=== PATIENT | male | born 1965 | race African-American/Black ===

== ENCOUNTER 2021-07-07 11:22 | Inpatient (IN) | payer OTHER ==
[2021-07-07] MEDS ORDERED: ACETAMINOPHEN 1000 MG/100 ML VIAL IVPB ONE (13:52)
[2021-07-07 15:10] LABS: VENOUS BASE EXCESS 2.9 mmol/L (-2-2); VENOUS O2 SATURATION 95.6 % (70-80); VENOUS PCO2 44.9 mmHg (38-52); VENOUS PH 7.413 (7.310-7.410)
[2021-07-07 15:18] LABS: BASO % 0.8 % (0-2.0); EOS % 2.7 % (0-4.5); HEMOGLOBIN 14.4 GM/dL (11.7-16.9); LYMPH % 30.3 % (8-40); MCH 30.9 pg (25.7-33.7); MCHC 34.2 g/dl (32.0-35.9); MEAN CELL VOLUME 90.3 fl (80-96); MEAN PLT VOLUME 8.1 fl (7.5-11.1); MONO % 11.3 % (3.8-10.2); NEUT % 54.9 % (42.8-82.8); PLATELET COUNT 259 10^3/uL (134-434); RBC 4.65 M/mm3 (4.00-5.60); RDW 13.3 % (11.9-15.9); WHITE BLOOD COUNT 10.4 K/mm3 (4.0-10.0)
[2021-07-07 15:22] LABS: CHLORIDE 105 mmol/L (98-107); SODIUM 139 mmol/L (136-145)
[2021-07-07 15:24] LABS: CALCIUM 9.1 mg/dL (8.5-10.1)
[2021-07-07 15:25] LABS: ANION GAP 8 MMOL/L (8-16); BLOOD UREA NITROGEN 24.1 mg/dL (7-18); CO2 27 mmol/L (21-32); GLUCOSE,RANDOM 99 mg/dL (74-106)
[2021-07-07 15:28] LABS: CREATININE 1.2 mg/dL (0.55-1.3); SGOT/AST 62 U/L (15-37); SGPT/ALT 62 U/L (13-61)
[2021-07-07 15:30] LABS: BILIRUBIN,TOTAL 0.4 mg/dL (0.2-1); TOT PROT 6.7 g/dl (6.4-8.2)
[2021-07-07 15:31] LABS: ALK PHOS 66 U/L (45-117)
[2021-07-07 15:38] LABS: PLATELET ESTIMATE NORMAL
[2021-07-07] MEDS ORDERED: VANCOMYCIN 1 GM in D5W (PRE-DOCKED) 1,000 MG/250 ML IVPB ONE (15:57)
[2021-07-07] MEDS ORDERED: PIPERACILLIN/TAZOB 4.5 GM 4.5 GM in DEXTROSE 5%-WATER 100 ML IVPB ONE (15:57)
[2021-07-07] MEDS ORDERED: ACETAMINOPHEN 325 MG TABLET (FP) PO PRN (20:43)
[2021-07-07] MEDS ORDERED: FOLIC ACID INJECTION - 1 MG, THIAMINE HCL 100 MG, MULTIVIT INJECTION ADULT 10 ML in SOD... IVPB ONE (20:57)
[2021-07-07] MEDS ORDERED: diazePAM 5 MG TABLET PO PRN (20:59)
[2021-07-07] MEDS: SODIUM CHLORIDE 1,000 ML IV SCH (21:24)
[2021-07-07] MEDS: NICOTINE 7 MG/24 HOURS TOPICAL PATCH TD SCH (22:17)
[2021-07-07] MEDS: INSULIN SLIDING SCALE (NOVOLOG) 1 VIAL SQ SCH (22:18)
[2021-07-07] MEDS ORDERED: HEPARIN NA (PORCINE) 5,000 UNITS/ML 1ML VIAL ONE (22:19)
[2021-07-07] MEDS: HEPARIN NA (PORCINE) 5,000 UNITS/ML 1ML VIAL SQ SCH (22:23)
[2021-07-07] MEDS ORDERED: PIPERACILLIN/TAZOB 3.375 GM 3.375 GM/50 ML BAG IVPB ONE (22:58)
[2021-07-07] MEDS ORDERED: PIPERACILLIN/TAZOB 3.375 GM 3.375 GM in DEXTROSE 5%-WATER - 50 ML IVPB SCH (23:00)
[2021-07-07] MEDS: PIPERACILLIN/TAZOB 3.375 GM 3.375 GM in DEXTROSE 5%-WATER - 50 ML IVPB SCH (23:06)
[2021-07-08 03:58] VITALS: BMI 26.4
[2021-07-08] MEDS ORDERED: DEXTROSE 5%-WATER - 50 ML IVPB ONE ×2 (05:46→10:21)
[2021-07-08] MEDS ORDERED: PIPERACILLIN/TAZOBACTAM 3.375 GM VIAL IVPB ONE ×2 (05:46→10:20)
[2021-07-08] MEDS: HEPARIN NA (PORCINE) 5,000 UNITS/ML 1ML VIAL SQ SCH ×3 (06:32→21:49)
[2021-07-08] MEDS: PIPERACILLIN/TAZOB 3.375 GM 3.375 GM in DEXTROSE 5%-WATER - 50 ML IVPB SCH ×2 (06:32→11:26)
[2021-07-08] MEDS: INSULIN SLIDING SCALE (NOVOLOG) 1 VIAL SQ SCH ×4 (07:03→23:47)
[2021-07-08] MEDS ORDERED: THIAMINE HCL 100 MG TABLET (FP) PO SCH (10:00)
[2021-07-08] MEDS ORDERED: VANCOMYCIN 1 GRAM (PRE-DOCKED) 1,000 MG/250 ML BAG IVPB ONE (10:00)
[2021-07-08] MEDS ORDERED: VANCOMYCIN 1 GM in D5W (PRE-DOCKED) 1,000 MG/250 ML IVPB SCH (10:00)
[2021-07-08] MEDS: FOLIC ACID 1 MG TABLET (FP) PO SCH (10:24)
[2021-07-08] MEDS: NICOTINE 7 MG/24 HOURS TOPICAL PATCH TD SCH (10:25)
[2021-07-08] MEDS: CYANOCOBALAMIN (VITAMIN B-12) 100 MCG TABLET PO SCH (11:24)
[2021-07-08] MEDS ORDERED: ZINC OXIDE 20% TOPICAL OINTMENT 30 GM TUBE TP ONE (15:00)
[2021-07-08] MEDS ORDERED: levETIRAcetam 500 MG TABLET (FP) PO ONE (17:11)
[2021-07-08] MEDS ORDERED: PIPERACILLIN/TAZOB 3.375 GM 3.375 GM in DEXTROSE 5%-WATER - 50 ML IVPB SCH (18:00)
[2021-07-08] MEDS: QUEtiapine FUMARATE 25 MG TABLET PO SCH (21:49)
[2021-07-08] MEDS: PRAMIPEXOLE DIHYDROCHLORIDE 0.125 MG TABLET PO SCH (21:51)
[2021-07-08] MEDS: SODIUM CHLORIDE 1,000 ML IV SCH (22:06)
[2021-07-08 23:42] LABS: PH,URINE 7.5 (5.0-8.0); URINE APPEARANCE CLEAR; URINE BILIRUBIN NEGATIVE (NEGATIVE); URINE COLOR YELLOW; URINE GLUCOSE (UA) NEGATIVE (NEGATIVE); URINE KETONE NEGATIVE (NEGATIVE); URINE LEUK ESTERASE NEGATIVE (NEGATIVE); URINE NITRITE NEGATIVE (NEGATIVE); URINE PROTEIN NEGATIVE (NEGATIVE)
[2021-07-09] MEDS: INSULIN SLIDING SCALE (NOVOLOG) 1 VIAL SQ SCH (06:58)
[2021-07-09] MEDS: HEPARIN NA (PORCINE) 5,000 UNITS/ML 1ML VIAL SQ SCH ×3 (06:59→21:52)
[2021-07-09 07:08] LABS: HEMATOCRIT 38.5 % (35.4-49); HEMOGLOBIN 13.5 GM/dL (11.7-16.9); MCH 31.8 pg (25.7-33.7); MEAN PLT VOLUME 7.4 fl (7.5-11.1); PLATELET COUNT 290 10^3/uL (134-434); RBC 4.22 M/mm3 (4.00-5.60); RDW 13.3 % (11.9-15.9); WHITE BLOOD COUNT 6.8 K/mm3 (4.0-10.0)
[2021-07-09 07:28] LABS: CALCIUM 7.8 mg/dL (8.5-10.1)
[2021-07-09 07:29] LABS: ALBUMIN 2.5 g/dl (3.4-5.0); BLOOD UREA NITROGEN 12.8 mg/dL (7-18); MAGNESIUM 1.8 mg/dL (1.8-2.4)
[2021-07-09 07:32] LABS: CREATININE 0.8 mg/dL (0.55-1.3); PHOSPHOROUS 2.5 mg/dL (2.5-4.9)
[2021-07-09 07:34] LABS: BILIRUBIN,TOTAL 0.3 mg/dL (0.2-1); TOT PROT 5.8 g/dl (6.4-8.2)
[2021-07-09 07:35] LABS: CHOLESTEROL 137 mg/dL (50-200); TRIGLYCERIDES 77 mg/dL (0-150)
[2021-07-09 07:38] LABS: HDL CHOLESTEROL 56 mg/dL (40-60); LDL CHOLESTEROL (ONLY SJRH) 59 mg/dL (5-100)
[2021-07-09] MEDS ORDERED: levETIRAcetam 500 MG TABLET (FP) PO SCH (10:00)
[2021-07-09] MEDS ORDERED: levETIRAcetam 500 MG TABLET (FP) PO ONE (10:00)
[2021-07-09] MEDS: NICOTINE 7 MG/24 HOURS TOPICAL PATCH TD SCH (10:48)
[2021-07-09] MEDS: CYANOCOBALAMIN (VITAMIN B-12) 100 MCG TABLET PO SCH (10:49)
[2021-07-09] MEDS: THIAMINE HCL 200 MG/2 ML VIAL IVPB SCH ×2 (10:49→15:30)
[2021-07-09] MEDS: PRAMIPEXOLE DIHYDROCHLORIDE 0.125 MG TABLET PO SCH ×3 (10:50→22:18)
[2021-07-09] MEDS: FOLIC ACID 1 MG TABLET (FP) PO SCH (10:51)
[2021-07-09] MEDS ORDERED: HYDROCHLOROTHIAZIDE 12.5 MG CAPSULE (FP) PO SCH ×2 (14:30→14:31)
[2021-07-09] MEDS: VALSARTAN 160 MG TABLET PO SCH (15:30)
[2021-07-09] MEDS: HYDROCHLOROTHIAZIDE 12.5 MG CAPSULE (FP) PO SCH (15:30)
[2021-07-09] MEDS: QUEtiapine FUMARATE 25 MG TABLET PO SCH (21:52)
[2021-07-09] MEDS: levETIRAcetam 500 MG TABLET (FP) PO SCH (21:52)
[2021-07-09 23:37] VITALS: PULSE 74; TEMP 98.1
[2021-07-10] MEDS: THIAMINE HCL 200 MG/2 ML VIAL IVPB SCH ×4 (00:32→17:21)
[2021-07-10] MEDS: HEPARIN NA (PORCINE) 5,000 UNITS/ML 1ML VIAL SQ SCH ×3 (05:30→22:08)
[2021-07-10] MEDS ORDERED: PT OWN MED DRAWER 7, Y5N ONE (09:02)
[2021-07-10] MEDS: HYDROCHLOROTHIAZIDE 12.5 MG CAPSULE (FP) PO SCH (09:32)
[2021-07-10] MEDS: PRAMIPEXOLE DIHYDROCHLORIDE 0.125 MG TABLET PO SCH ×2 (09:32→22:08)
[2021-07-10] MEDS: VALSARTAN 160 MG TABLET PO SCH (09:32)
[2021-07-10] MEDS: FOLIC ACID 1 MG TABLET (FP) PO SCH (09:33)
[2021-07-10] MEDS: CYANOCOBALAMIN (VITAMIN B-12) 100 MCG TABLET PO SCH (09:33)
[2021-07-10] MEDS: levETIRAcetam 500 MG TABLET (FP) PO SCH ×2 (09:34→22:08)
[2021-07-10] MEDS: NICOTINE 7 MG/24 HOURS TOPICAL PATCH TD SCH (09:34)
[2021-07-10 09:58] VITALS: BP 141/90
[2021-07-10] MEDS ORDERED: VALSARTAN 160 MG TABLET PO SCH (10:00)
[2021-07-10] MEDS ORDERED: CYCLOBENZAPRINE HCL 10 MG TABLET (FP) PO SCH (22:00)
[2021-07-10] MEDS ORDERED: ZINC OXIDE 20% TOPICAL OINTMENT 30 GM TUBE TP SCH (22:00)
[2021-07-10] MEDS: QUEtiapine FUMARATE 25 MG TABLET PO SCH (22:08)
[2021-07-11] MEDS: THIAMINE HCL 200 MG/2 ML VIAL IVPB SCH (00:15)
[2021-07-11] MEDS: HEPARIN NA (PORCINE) 5,000 UNITS/ML 1ML VIAL SQ SCH (06:11)
[2021-07-12] MEDS ORDERED: THIAMINE HCL 100 MG TABLET (FP) PO SCH (10:00)
== END 2021-07-11 09:14 | disposition home or self-care (01) | DRG 53 ==
LOC: JER 11:22 → JERBED 19:15 → J4W 07-08 02:56
PROVIDERS: ATTEND Internal Medicine
DX: G40.209 Localization-related (focal) (partial) symptomatic epilepsy and epileptic syndromes with complex partial seizures, not intractable, without status epilepticus (principal); F31.9 Bipolar disorder, unspecified; R55 Syncope and collapse; E11.9 Type 2 diabetes mellitus without complications; F10.10 Alcohol abuse, uncomplicated; R74.01 Elevation of levels of liver transaminase levels; Z59.02 Unsheltered homelessness; R21 Rash and other nonspecific skin eruption; M62.82 Rhabdomyolysis; D72.829 Elevated white blood cell count, unspecified; M54.17 Radiculopathy, lumbosacral region; G25.81 Restless legs syndrome; I10 Essential (primary) hypertension
CPT/HCPCS: 36415; 70450-TC; 70551-TC; 71046-TC-FY; 74176-TC; 74177-TC; 80053; 80061; 80307; 81003; 82010; 82550; 82553; 82803; 82962; 83036; 83605; 83735; 84100; 84484; 85025; 85027; 86707; 86803; 87086; 87340; 87350; 87517; 87804; 93005; 93010; 93306-TC; 99285-25; C9803; J0131; J1644; Q9967; U0003; U0005

== ENCOUNTER 2021-07-11 08:44 | Emergency (ER) | payer OTHER ==
[2021-07-11 09:15] VITALS: BP 159/107; PULSE 82; TEMP 98.6; BMI 26.4
[2021-07-11] MEDS ORDERED: levETIRAcetam 500 MG TABLET (FP) PO ONE ×2 (10:07→10:59)
[2021-07-11] MEDS ORDERED: ACETAMINOPHEN 325 MG TABLET (FP) PO ONE (10:09)
[2021-07-11] MEDS ORDERED: ACETAMINOPHEN 325 MG TABLET (FP) ONE (10:59)
== END 2021-07-11 11:25 | disposition home or self-care (01) ==
LOC: JER 08:44
DX: R56.9 Unspecified convulsions (principal)
CPT/HCPCS: 82962; 93005; 93010; 99284-25

== ENCOUNTER 2021-07-23 07:33 | Emergency (ER) | payer OTHER ==
[2021-07-23 08:22] VITALS: BP 123/81; PULSE 82; TEMP 97.8; BMI 26.4
[2021-07-23] MEDS ORDERED: FAMOTIDINE 20 MG/50 ML IVPB 20 MG/50 ML MG IVPB ONE ×2 (08:49→09:16)
[2021-07-23] MEDS ORDERED: LACTATED RINGERS SOLUTION 1,000 ML IV STA (08:49)
[2021-07-23] MEDS ORDERED: ONDANSETRON 4 MG/2 ML VIAL IVPUSH ONE (08:49)
[2021-07-23] MEDS ORDERED: ONDANSETRON 4 MG/2 ML VIAL ONE (09:15)
[2021-07-23 09:44] LABS: BASO % 0.5 % (0-2.0); EOS % 2.5 % (0-4.5); HEMATOCRIT 46.5 % (35.4-49); HEMOGLOBIN 16.1 GM/dL (11.7-16.9); LYMPH % 34.6 % (8-40); MCH 31.5 pg (25.7-33.7); MCHC 34.7 g/dl (32.0-35.9); MEAN CELL VOLUME 90.7 fl (80-96); MEAN PLT VOLUME 6.9 fl (7.5-11.1); MONO % 8.6 % (3.8-10.2); NEUT % 53.8 % (42.8-82.8); PLATELET COUNT 394 10^3/uL (134-434); RBC 5.12 M/mm3 (4.00-5.60); RDW 13.4 % (11.9-15.9)
[2021-07-23] MEDS ORDERED: ACETAMINOPHEN 500 MG TABLET (FP) PO ONE (09:47)
[2021-07-23] MEDS ORDERED: ACETAMINOPHEN 500 MG TABLET (FP) ONE (09:48)
[2021-07-23 09:55] LABS: CHLORIDE 106 mmol/L (98-107); SODIUM 137 mmol/L (136-145)
[2021-07-23 09:57] LABS: ANION GAP 5 MMOL/L (8-16); CALCIUM 9.4 mg/dL (8.5-10.1); CO2 27 mmol/L (21-32); GLUCOSE,RANDOM 83 mg/dL (74-106); LIPASE 147 U/L (73-393); MAGNESIUM 2.6 mg/dL (1.8-2.4)
[2021-07-23 09:58] LABS: ALBUMIN 3.8 g/dl (3.4-5.0)
[2021-07-23 09:59] LABS: CREATININE 1.1 mg/dL (0.55-1.3)
[2021-07-23 10:00] LABS: PHOSPHOROUS 3.8 mg/dL (2.5-4.9); SGOT/AST 27 U/L (15-37); SGPT/ALT 48 U/L (13-61)
[2021-07-23 10:01] LABS: TOT PROT 7.7 g/dl (6.4-8.2)
[2021-07-23 10:02] LABS: BILIRUBIN,TOTAL 0.3 mg/dL (0.2-1)
[2021-07-23 10:04] LABS: ALK PHOS 88 U/L (45-117)
== END 2021-07-23 13:20 | disposition home or self-care (01) ==
LOC: JER 07:33
PROC: 3E0333Z Introduction of Anti-inflammatory into Peripheral Vein, Percutaneous Approach (ICD-10-PCS; principal; 2021-07-23)
PROC: 3E033GC Introduction of Other Therapeutic Substance into Peripheral Vein, Percutaneous Approach (ICD-10-PCS; 2021-07-23)
DX: K52.9 Noninfective gastroenteritis and colitis, unspecified (principal)
CPT/HCPCS: 36415; 74177-TC; 80053; 82550; 83690; 83735; 84100; 84484; 85025; 93005; 93010; 99285-25; C9803; Q9967; U0003; U0005

== ENCOUNTER 2021-08-12 09:18 | Emergency (ER) | payer OTHER ==
[2021-08-12 09:35] VITALS: BMI 27.7
[2021-08-12] MEDS ORDERED: ONDANSETRON 4 MG/2 ML VIAL IVPUSH ONE (10:40)
[2021-08-12] MEDS ORDERED: SODIUM CHLORIDE 0.9% 500 ML INFUS.BAG IV ONE (10:40)
[2021-08-12 11:30] LABS: BASO % 0.5 % (0-2.0); EOS % 0.1 % (0-4.5); HEMATOCRIT 46.3 % (35.4-49); LYMPH % 15.5 % (8-40); MCHC 34.5 g/dl (32.0-35.9); MEAN CELL VOLUME 89.8 fl (80-96); MEAN PLT VOLUME 6.3 fl (7.5-11.1); MONO % 18.4 % (3.8-10.2); NEUT % 65.5 % (42.8-82.8); PLATELET COUNT 290 10^3/uL (134-434); RBC 5.15 M/mm3 (4.00-5.60); RDW 12.6 % (11.9-15.9); WHITE BLOOD COUNT 6.9 K/mm3 (4.0-10.0)
[2021-08-12 11:53] LABS: CALCIUM 9.2 mg/dL (8.5-10.1)
[2021-08-12 11:54] LABS: ALBUMIN 3.9 g/dl (3.4-5.0); BLOOD UREA NITROGEN 15.3 mg/dL (7-18)
[2021-08-12 11:57] LABS: CREATININE 1.3 mg/dL (0.55-1.3)
[2021-08-12 11:58] LABS: BILIRUBIN,TOTAL 0.4 mg/dL (0.2-1); TOT PROT 7.5 g/dl (6.4-8.2)
[2021-08-12 13:21] VITALS: BP 123/82; PULSE 90
[2021-08-12] MEDS ORDERED: ACETAMINOPHEN 1000 MG/100 ML BAG IVPB ONE (13:45)
[2021-08-12] MEDS ORDERED: ACETAMINOPHEN INJECTION 100 ML IVPB ONE (13:47)
[2021-08-12 15:41] VITALS: TEMP 98.5
[2021-08-13 08:06] LABS: SARS-CoV-2 NAA Not Detected (Not Detected)
== END 2021-08-12 17:41 | disposition home or self-care (01) ==
LOC: JER 09:18
PROC: 3E0333Z Introduction of Anti-inflammatory into Peripheral Vein, Percutaneous Approach (ICD-10-PCS; principal; 2021-08-12)
PROC: 3E033GC Introduction of Other Therapeutic Substance into Peripheral Vein, Percutaneous Approach (ICD-10-PCS; 2021-08-12)
DX: R11.10 Vomiting, unspecified (principal); R19.7 Diarrhea, unspecified
CPT/HCPCS: 36415; 80053; 85025; 87804; 96374; 96375; 99284-25; C9803-CS; U0003; U0005

== ENCOUNTER 2021-09-16 17:32 | Emergency (ER) | payer OTHER ==
[2021-09-16 17:56] VITALS: TEMP 97.9; BMI 24.4
[2021-09-16] MEDS ORDERED: METOCLOPRAMIDE HCL INJECTION 10 MG/2 ML VIAL IVPUSH ONE (18:38)
[2021-09-16 19:49] LABS: EOS % 1.6 % (0-4.5); HEMATOCRIT 43.2 % (35.4-49); HEMOGLOBIN 14.9 GM/dL (11.7-16.9); LYMPH % 31.9 % (8-40); MCH 31.1 pg (25.7-33.7); MCHC 34.5 g/dl (32.0-35.9); MEAN CELL VOLUME 90.1 fl (80-96); MEAN PLT VOLUME 6.8 fl (7.5-11.1); NEUT % 55.5 % (42.8-82.8); PLATELET COUNT 277 10^3/uL (134-434); RBC 4.79 M/mm3 (4.00-5.60); RDW 13.1 % (11.9-15.9)
[2021-09-16 20:11] LABS: ALBUMIN 3.7 g/dl (3.4-5.0); BLOOD UREA NITROGEN 12.9 mg/dL (7-18); CALCIUM 9.1 mg/dL (8.5-10.1); MAGNESIUM 2.3 mg/dL (1.8-2.4)
[2021-09-16 20:14] LABS: CREATININE 1.1 mg/dL (0.55-1.3)
[2021-09-16 20:16] LABS: TOT PROT 7.3 g/dl (6.4-8.2)
[2021-09-16] MEDS ORDERED: KETOROLAC TROMETHAMINE 15 MG/ML VIAL IVPUSH ONE (20:22)
[2021-09-16 22:57] VITALS: BP 117/87; PULSE 74
== END 2021-09-17 00:32 | disposition home or self-care (01) ==
LOC: JER 17:32
PROC: 3E033GC Introduction of Other Therapeutic Substance into Peripheral Vein, Percutaneous Approach (ICD-10-PCS; principal; 2021-09-16)
DX: R42 Dizziness and giddiness (principal)
CPT/HCPCS: 36415; 70450-TC; 71045-TC-FY; 80053; 82962; 83735; 84484; 85025; 93005; 93010; 96374; 96375; 99285-25; C9803; U0003; U0005

== ENCOUNTER 2021-11-10 07:41 | Emergency (ER) | payer SELFPAY ==
[2021-11-10] MEDS ORDERED: LIDOCAINE 5% TOPICAL PATCH TP ONE (08:09)
[2021-11-10] MEDS ORDERED: ACETAMINOPHEN 1000 MG/100 ML BAG IVPB ONE (08:10)
[2021-11-10] MEDS ORDERED: SODIUM CHLORIDE 0.9% 500 ML INFUS.BAG IV ONE (08:21)
[2021-11-10] MEDS ORDERED: BACITRACIN 0.9 GM PACKET ONE (08:29)
[2021-11-10] MEDS ORDERED: ACETAMINOPHEN INJECTION 100 ML IVPB ONE (08:30)
[2021-11-10] MEDS ORDERED: LIDOCAINE 5% TOPICAL PATCH ONE (08:31)
[2021-11-10 08:33] VITALS: TEMP 98; BMI 24.4
[2021-11-10 08:56] LABS: BASO % 0.7 % (0-2.0); EOS % 0.3 % (0-4.5); HEMATOCRIT 46.4 % (35.4-49); LYMPH % 12.6 % (8-40); MCH 30.9 pg (25.7-33.7); MCHC 34.4 g/dl (32.0-35.9); MEAN CELL VOLUME 89.9 fl (80-96); MEAN PLT VOLUME 6.7 fl (7.5-11.1); MONO % 7.6 % (3.8-10.2); NEUT % 78.8 % (42.8-82.8); PLATELET COUNT 314 10^3/uL (134-434); RBC 5.16 M/mm3 (4.00-5.60); RDW 13.3 % (11.9-15.9)
[2021-11-10 09:21] LABS: ALBUMIN 4.1 g/dl (3.4-5.0); BLOOD UREA NITROGEN 14.4 mg/dL (7-18); CALCIUM 9.5 mg/dL (8.5-10.1); MAGNESIUM 2.3 mg/dL (1.8-2.4)
[2021-11-10 09:24] LABS: PHOSPHOROUS 4.2 mg/dL (2.5-4.9)
[2021-11-10 09:25] LABS: BILIRUBIN,TOTAL 0.9 mg/dL (0.2-1); TOT PROT 7.7 g/dl (6.4-8.2)
[2021-11-10] MEDS ORDERED: levETIRAcetam 500 MG/5 ML INJECTION VIAL IVPB ONE ×2 (10:43→11:14)
[2021-11-10 11:50] LABS: URINE APPEARANCE CLEAR; URINE BILIRUBIN NEGATIVE (NEGATIVE); URINE COLOR YELLOW; URINE GLUCOSE (UA) NEGATIVE (NEGATIVE); URINE KETONE TRACE (NEGATIVE); URINE LEUK ESTERASE NEGATIVE (NEGATIVE); URINE NITRITE NEGATIVE (NEGATIVE); URINE PROTEIN NEGATIVE (NEGATIVE); URINE UROBILINOGEN 0.2 mg/dL (0.2-1.0)
[2021-11-10 12:49] VITALS: BP 120/90; PULSE 83
[2021-11-10] MEDS ORDERED: LIDOCAINE PATCH REMOVAL MC SCH (22:00)
== END 2021-11-10 13:22 | disposition home or self-care (01) ==
LOC: JER 07:41
PROC: 3E0333Z Introduction of Anti-inflammatory into Peripheral Vein, Percutaneous Approach (ICD-10-PCS; principal; 2021-11-10)
PROC: 3E0333Z Introduction of Anti-inflammatory into Peripheral Vein, Percutaneous Approach (ICD-10-PCS; 2021-11-10)
DX: G40.509 Epileptic seizures related to external causes, not intractable, without status epilepticus (principal)
CPT/HCPCS: 36415; 80053; 80177; 81003; 83735; 84100; 85025; 87086; 93005; 93010; 99281-25